=== PATIENT | female | born 2000 | race Caucasian/White ===

== ENCOUNTER 2018-05-27 21:16 | Emergency (ER) | payer SELFPAY ==
[2018-05-27] MEDS: ACETAMINOPHEN 500 MG TAB PO (22:37)
[2018-05-27] MEDS: SOD CHLORIDE 0.9% 1,000 ML IV (22:38)
[2018-05-27] MEDS: KETOROLAC 30 MG INJ IV (23:07)
== END 2018-05-28 02:11 | disposition home or self-care (01) ==
LOC: FTE 05-28 02:11
DX: B34.9 Viral infection, unspecified (principal); R00.0 Tachycardia, unspecified
CPT/HCPCS: 81025; 83605; 87880; 93005; 96361; 96374; 99284-25

== ENCOUNTER 2018-09-03 22:48 | Emergency (ER) | payer MEDICAID ==
[2018-09-03 23:21] LABS: ADD MAN DIFF? NO
[2018-09-03 23:23] LABS: WHITE BLOOD COUNT 16.5 10^3/ul (4.8-10.8)
[2018-09-03 23:23] LABS: ABNORMAL IP MESSAGE 1; BASOPHIL # 0.1 10^3/ul (0.0-0.1); BASOPHILS % 0.4 % (0.0-2.0); HEMATOCRIT 35.6 % (37.0-47.0); HEMOGLOBIN 11.6 g/dl (12.0-16.0); LYMPHOCYTES # 1.3 10^3/ul (0.8-2.9); LYMPHOCYTES % 8.1 % (18.0-55.0); MEAN CORPUSCULAR HEMOGLOBIN 29.1 pg (29.0-33.0); MEAN CORPUSCULAR HGB CONC 32.6 g/dl (32.0-37.0); MEAN CORPUSCULAR VOLUME 89.4 fl (72.0-104.0); MEAN PLATELET VOLUME 9.5 fl (7.4-10.4); MONOCYTE # 1.6 10^3/ul (0.3-0.9); MONOCYTES % 9.5 % (0.0-13.0); NEUTROPHIL # 13.5 10^3/ul (1.6-7.5); NEUTROPHILS % 81.6 % (30.0-74.0); PLATELET COUNT 320 10^3/UL (140-415); RED BLOOD COUNT 3.98 10^6/ul (4.20-5.40); RED CELL DISTRIBUTION WIDTH 12.5 % (11.5-14.5)
[2018-09-03] MEDS: KETOROLAC 15 MG INJ IV (23:28)
[2018-09-03] MEDS: SODIUM CHLORIDE 0.9% 1L BAG IV* (23:28)
[2018-09-03 23:29] LABS: ADD UMIC YES; UR ASCORBIC ACID NEGATIVE (NEGATIVE); UR BACTERIA FEW /HPF (NONE SEEN); UR BILIRUBIN (Dip) NEGATIVE (NEGATIVE); UR BLOOD (Dip) 3+ mg/dL (NEGATIVE); UR CLARITY SLIGHTLY CLOUDY (CLEAR); UR COLOR STRAW (YELLOW); UR GLUCOSE (Dip) NEGATIVE (NEGATIVE); UR KETONES (Dip) NEGATIVE (NEGATIVE); UR LEUKOCYTE ESTERASE (Dip) NEGATIVE Leu/ul (NEGATIVE); UR NITRITE (Dip) NEGATIVE (NEGATIVE); UR RBC 2 /HPF (0-5); UR SPECIFIC GRAVITY (Dip) 1.006 (1.003-1.030); UR SQUAMOUS EPITHELIAL CELL MODERATE /HPF (FEW); UR TOTAL PROTEIN (Dip) NEGATIVE (NEGATIVE); UR UROBILINOGEN (Dip) NEGATIVE (NEGATIVE); UR WBC 5 /HPF (0-5)
[2018-09-03] MEDS: CEFTRIAXONE 1 GM/50 ML (PMX) 50 ML IVPB (23:29)
[2018-09-03 23:41] LABS: ALANINE AMINOTRANSFERASE 20 IU/L (13-69); ALBUMIN 4.4 g/dl (3.3-4.9); ALBUMIN/GLOBULIN RATIO 1.37; ALKALINE PHOSPHATASE 77 IU/L (42-121); ANION GAP 11 (5-13); ASPARTATE AMINO TRANSFERASE 19 IU/L (15-46); BILIRUBIN,INDIRECT 0.6 mg/dl (0-1.1); BILIRUBIN,TOTAL 0.6 mg/dl (0.2-1.3); BLOOD UREA NITROGEN 9 mg/dl (7-20); CALCIUM 9.2 mg/dl (8.4-10.2); CARBON DIOXIDE 25 mmol/L (21-31); CHLORIDE 104 mmol/L (97-110); CREATININE 0.59 mg/dl (0.44-1.00); Estimated GFR > 60 mL/min (>60); GLUCOSE 108 mg/dl (70-220); LIPASE 44 U/L (23-300); POTASSIUM 3.4 mmol/L (3.5-5.1); SODIUM 140 mmol/L (135-144); TOTAL PROTEIN 7.6 g/dl (6.1-8.1)
[2018-09-03 23:43] LABS: INR 1.21; PROTIME 15.4 Sec (11.9-14.9); PT RATIO 1.2
[2018-09-03 23:44] LABS: PARTIAL THROMBOPLASTIN TIME 28.6 Sec (23.0-35.0)
[2018-09-03 23:52] LABS: TROPONIN-I < 0.012 ng/ml (0.000-0.120)
[2018-09-04] MEDS: OXYCODONE/ACETAMINOPHEN (5/325) TAB PO (00:19)
== END 2018-09-04 01:23 | disposition home or self-care (01) ==
LOC: E/R 09-04 01:23
DX: J02.0 Streptococcal pharyngitis (principal); N39.0 Urinary tract infection, site not specified; R40.2142 Coma scale, eyes open, spontaneous, at arrival to emergency department; R40.2362 Coma scale, best motor response, obeys commands, at arrival to emergency department; R40.2252 Coma scale, best verbal response, oriented, at arrival to emergency department; R10.2 Pelvic and perineal pain
CPT/HCPCS: 36415; 71045; 74176; 80053; 81001; 83605; 83690; 84484; 85025; 85610; 85730; 87040-91; 87086; 87880; 93005; 96374; 96375; 99285-25